=== PATIENT | female | born 1985 | race Caucasian/White ===

== ENCOUNTER → 2021-01-14 | Outpatient (CLI) | payer OTHER ==
--- NOTE | 2021-01-14 16:01 | DIREP ---
PROCEDURE:MRI - BRAIN WITHOUT CONTRAST COMPARISON:None. INDICATIONS:VERTIGO, VISUAL DISTURBANCE TECHNIQUE:A variety of imaging planes and parameters were utilized for visualization of suspected pathology in the brain. Images were performed without gadolinium contrast.. FINDINGS: CSF SPACES:Ventricles, cisterns, and sulci are appropriate for age. No hydrocephalus, subarachnoid hemorrhage, or mass. CEREBRUM:No edema, hemorrhage, mass, acute infarction, or inappropriate atrophy. CEREBELLUM:No edema, hemorrhage, mass, acute infarction, or inappropriate atrophy. BRAINSTEM:No edema, hemorrhage, mass, acute infarction, or inappropriate atrophy. SKULL:No mass or other significant visible lesion. SINUSES:Limited views demonstrate no significant mucosal thickening or fluid. OTHER:None. CONCLUSION:No acute intracranial findings. Dictated by: Rico Vivas M.D. on 01/14/2021 at 03:53 PM ECTION PT NAME [id number]
== END | disposition home or self-care (01) ==
LOC: RAD 14:54
PROVIDERS: ATTEND Physician Assistant
DX: H81.4 Vertigo of central origin (principal); H53.9 Unspecified visual disturbance
CPT/HCPCS: 70551